=== PATIENT | male | born 1990 | race Caucasian/White ===

== ENCOUNTER → 2022-12-19 | Outpatient (RCR) | payer BC | END | disposition still patient (30) | PROVIDERS: ATTEND Physician Assistant | DX: M54.50 Low back pain, unspecified (principal) ==

== ENCOUNTER 2023-01-16 08:05 | Outpatient (RCR) | payer BC | END 2023-01-19 | disposition home or self-care (01) | PROVIDERS: ATTEND Physician Assistant | DX: M54.50 Low back pain, unspecified (principal) ==

== ENCOUNTER 2023-02-04 13:43 | Outpatient (RCR) | payer BC | END 2023-02-19 | disposition home or self-care (01) | PROVIDERS: ATTEND Physician Assistant | DX: M54.50 Low back pain, unspecified (principal) ==

== ENCOUNTER 2023-04-20 08:00 | Outpatient (RCR) | payer BC | END 2023-04-21 | disposition home or self-care (01) | PROVIDERS: ATTEND Physician Assistant | DX: M54.50 Low back pain, unspecified (principal) ==

== ENCOUNTER 2023-05-20 16:03 | Outpatient (RCR) | payer BC | END 2023-05-21 | disposition home or self-care (01) | PROVIDERS: ATTEND Physician Assistant | DX: M54.50 Low back pain, unspecified (principal) ==